=== PATIENT | female | born 1950 | race Caucasian/White ===

== ENCOUNTER 2016-10-22 11:21 | Observation (INO) | payer BC, OTHER ==
[~2016-10-22] VITALS: Ht 154.9 cm; Wt 65.0 kg
[2016-10-22] VITALS (14 sets, daily range): BP systolic 79–193; BP diastolic 46–114; PULSE 63–90; RESP 16–20; TEMP 97.6–98.9; O2SAT 93–99
[2016-10-22] MEDS ORDERED: SODIUM CHLORIDE 0.9% FLUSH 5 ML FLUSH IVF PRN (11:30)
[2016-10-22] MEDS ORDERED: SODIUM CHLOR 0.9% 1000 ML INJ 1,000 ML IV ONE ×2 (11:30→12:00)
[2016-10-22] MEDS ORDERED: DIOV80TA4 PO (11:33)
[2016-10-22] MEDS ORDERED: METO25TA3 PO (11:33)
--- NOTE | 2016-10-22 11:34 | PD ---
HPI Chief Complaint: Chest Pain Time Seen by Provider: 11:29 Travel History International Travel<30 days: No Contact w/Intl Traveler<30days: No Traveled to known affect area: No History of Present Illness HPI Patient is a 66-year-old female with history of hypertension, hyperlipidemia, and the emergency room with complaints of chest pain. Patient reports that she began having substernal chest pain 2 days ago while at rest. Patient reports that the pain feels like a "pressure to my chest," and is associated with shortness of breath. Reports that her chest pain does radiate to her back, reports that chest pain has been continuous for the past 2 days, Reports that she decided to come to the emergency room today as chest pain is just getting worse. Reports no palpitations or diaphoresis with chest pain. No history of chest pain in the past. Denies history of ACS or history of coronary disease or history of cardiac stents in the past. PFSH Past Medical History Cardiovascular Problems: Yes (HTN) Past Surgical History Surgical History: No Previous Surgery Family History Family Myocardial Infarction: Yes Social History Alcohol Use: No Tobacco Use: No Substance Use: No Allergies-Medications (Allergen,Severity, Reaction): Coded Allergies: No Known Allergies (Unverified , 10/22/16) Reported Meds & Prescriptions Reported Meds & Active Scripts Active Reported E 1000 (Vitamin E) 1,000 Unit Cap 1 Cap PO DAILY Vitamin B12 (Cyanocobalamin) 500 Mcg Tab 1,000 Mcg PO DAILY Calcium 500 +D (Calcium Carbonate-Cholecalciferol) 500-400 Mg-Unit Tab 1 Tab PO DAILY Vitamin C (Ascorbic Acid) 500 Mg Cap 500 Mg PO DAILY Cymbalta DR (Duloxetine HCl) 20 Mg Capdr 20 Mg PO DAILY UNKNOWN DOSE [place] (Hydrocodone-Acetaminophen) 10-325 Mg Tab 1 Tab PO Q6H PRN Bisoprolol (Bisoprolol Fumarate) 5 Mg Tab 5 Mg PO DAILY Valsartan-Hydrochlorothiazide 80-12.5 Mg Tab 1 Tab PO DAILY PER PT DOSE 80 MG/ 12 MG Ferrous Sulfate 325 Mg Tab 325 Mg PO DAILY Venlafaxine ER 24 HR (Venlafaxine HCl) 75 Mg Cap 75 Mg PO DAILY Omeprazole 40 Mg Cap 40 Mg PO DAILY Gabapentin 600 Mg Tab 900 Mg PO DAILY Review of Systems General / Constitutional: No: Fever Eyes: No: Visual changes HENT: No: Headaches Cardiovascular: Positive: Chest Pain or Discomfort, Diaphoresis Respiratory: Positive: Shortness of Breath Gastrointestinal: No: Abdominal Pain Genitourinary: No: Dysuria Musculoskeletal: No: Pain Skin: No Rash Neurologic: No: Weakness Psychiatric: No: Depression Endocrine: No: Polydipsia Hematologic/Lymphatic: No: Easy Bruising Physical Exam Narrative GENERAL: Patient with mild distress on exam SKIN: Warm and dry. HEAD: Atraumatic. Normocephalic. EYES: Pupils equal and round. No scleral icterus. No injection or drainage. ENT: No nasal bleeding or discharge. Mucous membranes pink and moist. NECK: Trachea midline. No JVD. CARDIOVASCULAR: Regular rate and rhythm. No murmur appreciated. RESPIRATORY: No accessory muscle use. Clear to auscultation. Breath sounds equal bilaterally. GASTROINTESTINAL: Abdomen soft, non-tender, nondistended. Hepatic and splenic margins not palpable. MUSCULOSKELETAL: No obvious deformities. No clubbing. No cyanosis. No edema. NEUROLOGICAL: Awake and alert. No obvious cranial nerve deficits. Motor grossly within normal limits. Normal speech. PSYCHIATRIC: Appropriate mood and affect; insight and judgment normal. Data Data Last Documented VS Vital Signs Date Time Temp Pulse Resp B/P Pulse Ox O2 Delivery O2 Flow Rate FiO2 10/22/16 13:45 88 20 127/68 97 Nasal Cannula 2 10/22/16 11:23 98.9 Orders Electrocardiogram (10/22/16 11:29) B-Type Natriuretic Peptide (10/22/16 11:29) Ckmb (Isoenzyme) Profile (10/22/16 11:29) Complete Blood Count With Diff (10/22/16 11:29) Comprehensive Metabolic Panel (10/22/16 11:29) D-Dimer (10/22/16 11:29) Prothrombin Time / Inr (Pt) (10/22/16 11:29) Act Partial Throm Time (Ptt) (10/22/16 11:29) Troponin I (10/22/16 11:29) Chest, Single Ap (10/22/16 11:29) Ecg Monitoring (10/22/16 11:29) Iv Access Insert/Monitor (10/22/16 11:29) Oximetry (10/22/16 11:29) Oxygen Administration (10/22/16 11:29) Sodium Chloride 0.9% Flush (Ns Flush) (10/22/16 11:30) Nitroglycerin Sl (Nitrostat Sl) (10/22/16 11:30) Cta Thor Abd Aorta W Iv C W3d (10/22/16 11:29) Sodium Chlor 0.9% 1000 Ml Inj (Ns 1000 M (10/22/16 11:30) Morphine Inj (Morphine Inj) (10/22/16 12:00) Ondansetron Inj (Zofran Inj) (10/22/16 12:00) Sodium Chlor 0.9% 1000 Ml Inj (Ns 1000 M (10/22/16 12:00) CKMB (10/22/16 11:37) CKMB% (10/22/16 11:37) Iohexol 350 Inj (Omnipaque 350 Inj) (10/22/16 12:48) Blood Culture (10/22/16 13:37) Ceftriaxone Inj (Rocephin Inj) (10/22/16 13:45) Azithromycin Inj (Zithromax Inj) (10/22/16 13:45) Labs Laboratory Tests Test 10/22/16 11:37 White Blood Count 8.4 TH/MM3 Red Blood Count 4.69 MIL/MM3 Hemoglobin 14.1 GM/DL Hematocrit 41.2 % Mean Corpuscular Volume 87.9 FL Mean Corpuscular Hemoglobin 30.1 PG Mean Corpuscular Hemoglobin 34.3 % Concent Red Cell Distribution Width 13.7 % Platelet Count 245 TH/MM3 Mean Platelet Volume 8.5 FL Neutrophils (%) (Auto) 69.1 % Lymphocytes (%) (Auto) 20.5 % Monocytes (%) (Auto) 8.5 % Eosinophils (%) (Auto) 1.3 % Basophils (%) (Auto) 0.6 % Neutrophils # (Auto) 5.8 TH/MM3 Lymphocytes # (Auto) 1.7 TH/MM3 Monocytes # (Auto) 0.7 TH/MM3 Eosinophils # (Auto) 0.1 TH/MM3 Basophils # (Auto) 0.1 TH/MM3 CBC Comment DIFF FINAL Differential Comment Prothrombin Time 10.8 SEC Prothromb Time International 1.0 RATIO Ratio Activated Partial 24.2 SEC Thromboplast Time D-Dimer Quantitative (PE/DVT) 3.04 MG/L FEU Sodium Level 139 MEQ/L Potassium Level 4.0 MEQ/L Chloride Level 101 MEQ/L Carbon Dioxide Level 30.5 MEQ/L Anion Gap 8 MEQ/L Blood Urea Nitrogen 13 MG/DL Creatinine 0.67 MG/DL Estimat Glomerular Filtration 89 ML/MIN Rate Random Glucose 122 MG/DL Calcium Level 9.3 MG/DL Total Bilirubin 0.5 MG/DL Aspartate Amino Transf 19 U/L (AST/SGOT) Alanine Aminotransferase 28 U/L (ALT/SGPT) Alkaline Phosphatase 74 U/L Total Creatine Kinase 138 U/L Creatine Kinase MB 1.6 NG/ML Troponin I LESS THAN 0.02 NG/ML B-Type Natriuretic Peptide 20 PG/ML Total Protein 7.5 GM/DL Albumin 4.0 GM/DL MDM Medical Decision Making Medical Screen Exam Complete: Yes Emergency Medical Condition: Yes Interpretation(s) EKG at 1129: Normal sinus rhythm at 83 beats minute, QT/QTC 372/412, no acute ST or T-wave changes Vital Signs Date Time Temp Pulse Resp B/P Pulse Ox O2 Delivery O2 Flow Rate FiO2 10/22/16 11:35 97 Nasal Cannula 2 10/22/16 11:35 97 Nasal Cannula 2 10/22/16 11:23 98.9 66 18 193/114 96 Laboratory Tests Test 10/22/16 11:37 White Blood Count 8.4 TH/MM3 (4.0-11.0) Red Blood Count 4.69 MIL/MM3 (4.00-5.30) Hemoglobin 14.1 GM/DL (11.6-15.3) Hematocrit 41.2 % (35.0-46.0) Mean Corpuscular Volume 87.9 FL (80.0-100.0) Mean Corpuscular Hemoglobin 30.1 PG (27.0-34.0) Mean Corpuscular Hemoglobin 34.3 % Concent (32.0-36.0) Red Cell Distribution Width 13.7 % (11.6-17.2) Platelet Count 245 TH/MM3 (150-450) Mean Platelet Volume 8.5 FL (7.0-11.0) Neutrophils (%) (Auto) 69.1 % (16.0-70.0) Lymphocytes (%) (Auto) 20.5 % (9.0-44.0) Monocytes (%) (Auto) 8.5 % (0.0-8.0) Eosinophils (%) (Auto) 1.3 % (0.0-4.0) Basophils (%) (Auto) 0.6 % (0.0-2.0) Neutrophils # (Auto) 5.8 TH/MM3 (1.8-7.7) Lymphocytes # (Auto) 1.7 TH/MM3 (1.0-4.8) Monocytes # (Auto) 0.7 TH/MM3 (0-0.9) Eosinophils # (Auto) 0.1 TH/MM3 (0-0.4) Basophils # (Auto) 0.1 TH/MM3 (0-0.2) CBC Comment DIFF FINAL Differential Comment Prothrombin Time 10.8 SEC (9.8-11.6) Prothromb Time International 1.0 RATIO Ratio Activated Partial 24.2 SEC Thromboplast Time (24.3-30.1) D-Dimer Quantitative (PE/DVT) 3.04 MG/L FEU (0.00-0.50) Sodium Level 139 MEQ/L (136-145) Potassium Level 4.0 MEQ/L (3.5-5.1) Chloride Level 101 MEQ/L (98-107) Carbon Dioxide Level 30.5 MEQ/L (21.0-32.0) Anion Gap 8 MEQ/L (5-15) Blood Urea Nitrogen 13 MG/DL (7-18) Creatinine 0.67 MG/DL (0.50-1.00) Estimat Glomerular Filtration 89 ML/MIN (>89) Rate Random Glucose 122 MG/DL (74-106) Calcium Level 9.3 MG/DL (8.5-10.1) Total Bilirubin 0.5 MG/DL (0.2-1.0) Aspartate Amino Transf 19 U/L (15-37) (AST/SGOT) Alanine Aminotransferase 28 U/L (10-53) (ALT/SGPT) Alkaline Phosphatase 74 U/L (45-117) Total Creatine Kinase 138 U/L (26-192) Creatine Kinase MB 1.6 NG/ML (0.5-3.6) Troponin I LESS THAN 0.02 NG/ML (0.02-0.05) B-Type Natriuretic Peptide 20 PG/ML (0-100) Total Protein 7.5 GM/DL (6.4-8.2) Albumin 4.0 GM/DL (3.4-5.0) Last Impressions Chest X-Ray 10/22/161128 Signed Impressions: Service Date/Time: Saturday, October 22, 2016 11:43 - CONCLUSION: No acute intrathoracic disease. Shade Gore MD Aorta CTA 10/22/161128 Signed Impressions: Service Date/Time: Saturday, October 22, 2016 12:38 - CONCLUSION: 1. Aorta is normal in caliber without dissection. 2. Left lower lobe infiltrate. 3. 5 mm right lower lobe pulmonary nodule. Current guidelines suggest a repeat CT of the thorax in 6-12 months. Jim Tomas Jr., MD Differential Diagnosis ACS, unstable angina, electrolyte abnormalities, PE, DVT, aortic dissection Narrative Course 66-year-old female who presents to emergency room with complaints of chest pain. Patient reports that her chest pain began 2 days ago while at rest. She reports that chest pain is substernal and radiates her back. Reports that pain feels like a pressure to her chest and associated with shortness of breath Patient placed on monitor technician EKG obtained, EKG normal sinus rhythm with no acute ST or T-wave changes Plan to give patient several nitroglycerin and evaluate for further chest pain symptoms CBC, BMP, cardiac enzymes ordered for further evaluation of symptoms. X-ray ordered to evaluate for widened mediastinum Patient with chest pain rating to her back, CTA ordered for evaluation of possible aortic dissection Patient reevaluated, she reports that she is feeling a little better. Patient reports that she has had a dry cough for the past 2 days. Patient denies fevers or chills. Discussed with patient in detail CT findings. Understands that she does have a pneumonia seen on her CT. understands that she has a long nodule that needs to be follow-up with. Discussed need for treatment for pneumonia, will continue to monitor patient for her chest pain Last Impressions Chest X-Ray 10/22/161128 Signed Impressions: Service Date/Time: Saturday, October 22, 2016 11:43 - CONCLUSION: No acute intrathoracic disease. Shade Gore MD Aorta CTA 10/22/161128 Signed Impressions: Service Date/Time: Saturday, October 22, 2016 12:38 - CONCLUSION: 1. Aorta is normal in caliber without dissection. 2. Left lower lobe infiltrate. 3. 5 mm right lower lobe pulmonary nodule. Current guidelines suggest a repeat CT of the thorax in 6-12 months. Jim Tomas Jr., MD Physician Communication Physician Communication Discussed case with Dr Marcelo who accepts pt to service Diagnosis Primary Impression: Chest pain Qualified Code: R07.9 - Chest pain, unspecified type Additional Impressions: Pneumonia Qualified Code: J18.1 - Pneumonia of left lower lobe due to infectious organism Lung nodule Admitting Information Admitting Physician Requests: Observation Mari Feldman DO Oct 22, 2016 11:34
[2016-10-22] MEDS: NITROGLYCERIN 0.4 MG SL 25 TABS/BTL SL SCH ×3 (11:35→11:48)
[2016-10-22 11:48] LABS: AUTOMATED NEUTROPHIL # 5.8 TH/MM3 (1.8-7.7); BASOPHIL # 0.1 TH/MM3 (0-0.2); BASOPHIL % 0.6 % (0.0-2.0); EOSINOPHIL # 0.1 TH/MM3 (0-0.4); EOSINOPHIL % 1.3 % (0.0-4.0); HEMATOCRIT 41.2 % (35.0-46.0); HEMO FLAGS DIFF FINAL; LYMPH % 20.5 % (9.0-44.0); LYMPHOCYTE # 1.7 TH/MM3 (1.0-4.8); MEAN CELL VOLUME 87.9 FL (80.0-100.0); MEAN CORPUSCULAR HEMOGLOBIN 30.1 PG (27.0-34.0); MEAN CORPUSCULAR HGB CONC 34.3 % (32.0-36.0); MONO % 8.5 % (0.0-8.0); NEUT % 69.1 % (16.0-70.0); PLATELET COUNT 245 TH/MM3 (150-450); RED BLOOD COUNT 4.69 MIL/MM3 (4.00-5.30); RED CELL DISTRIBUTION WIDTH 13.7 % (11.6-17.2); WHITE BLOOD COUNT 8.4 TH/MM3 (4.0-11.0)
--- NOTE | 2016-10-22 11:51 | RADRPT ---
EXAM DATE/TIME: 10/22/2016 11:43 [facility] COMPARISON: No previous studies available for comparison. INDICATIONS : Chest pain. MEDICAL HISTORY : None. SURGICAL HISTORY : None. ENCOUNTER: Initial ACUITY: 1 day PAIN SCORE: 9/10 LOCATION: Bilateral chest FINDINGS: A single view of the chest demonstrates the lungs to be symmetrically aerated without evidence of mas s, infiltrate or effusion. The cardiomediastinal contours are unremarkable. Osseous structures are intact. CONCLUSION: No acute intrathoracic disease. Shade Gore MD on October 22, 2016 at 11:49 Board Certified Radiologist. This report was verified electronically.
[2016-10-22] MEDS ORDERED: ONDANSETRON HCL 4 MG/2 ML VIAL IV PUSH ONE (12:00)
[2016-10-22] MEDS ORDERED: MORPHINE SULFATE 4 MG/ML INJ IV PUSH ONE (12:00)
[2016-10-22 12:01] LABS: APTT (PATIENT) 24.2 SEC (24.3-30.1); PROTHROMBIN TIME - PATIENT 10.8 SEC (9.8-11.6)
[2016-10-22 12:09] LABS: ALT (GPT) 28 U/L (10-53); ANION GAP 8 MEQ/L (5-15); AST (GOT) 19 U/L (15-37); BICARBONATE 30.5 MEQ/L (21.0-32.0); BLOOD UREA NITROGEN 13 MG/DL (7-18); CHLORIDE 101 MEQ/L (98-107); GLOMERULAR FILTRATION RATE 89 ML/MIN (>89); SODIUM (NA) 139 MEQ/L (136-145)
[2016-10-22 12:12] LABS: ALKALINE PHOSPHATASE 74 U/L (45-117); CREATINE KINASE 138 U/L (26-192); TOTAL BILIRUBIN ADULT 0.5 MG/DL (0.2-1.0)
[2016-10-22 12:24] LABS: CKMB 1.6 NG/ML (0.5-3.6)
[2016-10-22] MEDS ORDERED: IOHEXOL 350 MG/ML 10 ML VIAL (for RAD DIAG) IV ONE (12:48)
--- NOTE | 2016-10-22 13:12 | RADRPT ---
EXAM DATE/TIME: 10/22/2016 12:38 [facility] COMPARISON: No previous studies available for comparison. INDICATIONS : Chest pain for 2 days, aortic dissection. IV CONTRAST: 100 cc Omnipaque 350 (iohexol) IV RADIATION DOSE: 19.45 CTDIvol (mGy) MEDICAL HISTORY : Hypertension. SURGICAL HISTORY : None. ENCOUNTER: Initial ACUITY: 1 day PAIN SCALE: 5/10 LOCATION: Bilateral arms TECHNIQUE: Volumetric scanning was performed using a multi-row detector CT scanner. The data was post processed with a variety of visualization algorithms including full volume maximum intensity projection, multi -planar sliding thin slab reformation, curved planar reformation, and surface rendering techniques. Using automated exposure control and adjustment of the mA and/or kV according to patient size, radiat ion dose was kept as low as reasonably achievable to obtain optimal diagnostic quality images. FINDINGS: Thoracic/abdominal aorta: The abdominal and thoracic aorta are normal in caliber and course. No aneurysm or dissection. Minimal scattered atherosclerotic plaque. The arch vessels, celiac, SMA, ZONIA, and renal arteries are patent. There is variant anatomy at the celiac origin with the left gastric arising directly off the aorta. The common hepatic artery arises off the SMA. Heart and mediastinum: The heart is normal in size. Pulmonary arteries are normal in caliber. A few tiny scattered mediastin al lymph nodes without adenopathy. A moderate size hiatal hernia noted. Lung parenchyma: Linear parenchymal opacity is seen involving the left lung base. The right lung is clear. A 5 mm nodu le is noted within the right lung base. No effusions. Diffuse low attenuation change of the liver. Other structures: CONCLUSION: 1. Aorta is normal in caliber without dissection. 2. Left lower lobe infiltrate. 3. 5 mm right lower lobe pulmonary nodule. Current guidelines suggest a repeat CT of the thorax in 6- 12 months. Jim Tomas Jr., MD on October 22, 2016 at 13:06 Board Certified Radiologist. This report was verified electronically.
[2016-10-22] MEDS ORDERED: FERR325T PO (13:42)
[2016-10-22] MEDS ORDERED: OMEP40CA2 PO (13:42)
[2016-10-22] MEDS ORDERED: VALS80TA2 PO (13:42)
[2016-10-22] MEDS ORDERED: BISO5TAB5 PO (13:42)
[2016-10-22] MEDS ORDERED: VENL75CA44 PO (13:42)
[2016-10-22] MEDS ORDERED: HYDR-3366 PO (13:42)
[2016-10-22] MEDS ORDERED: GABA600T PO (13:42)
[2016-10-22] MEDS ORDERED: E 101000 PO (13:42)
[2016-10-22] MEDS ORDERED: ASCO500C PO (13:42)
[2016-10-22] MEDS ORDERED: DULO20 PO (13:42)
[2016-10-22] MEDS ORDERED: CALC1TAB12 PO (13:42)
[2016-10-22] MEDS ORDERED: VITA500T49 PO (13:42)
[2016-10-22] MEDS ORDERED: cefTRIAXone INJ 1,000 MG in SODIUM CHLORIDE 0.9% INJ 100 ML IV ONE (13:45)
[2016-10-22] MEDS ORDERED: AZITHROMYCIN INJ 500 MG in SODIUM CHLOR 0.9% 250 ML INJ 250 ML IV ONE (13:45)
[2016-10-22] MEDS ORDERED: SODIUM CHLORIDE 0.9% FLUSH 5 ML FLUSH FLUSH PRN (14:30)
[2016-10-22] MEDS ORDERED: NALOXONE HCL 0.4 MG/ML AMP IV PRN (14:30)
[2016-10-22] MEDS ORDERED: cefTRIAXone INJ 1,000 MG in SODIUM CHLORIDE 0.9% INJ 100 ML IV SCH (15:00)
--- NOTE | 2016-10-22 15:06 | HHI.HP ---
[facility] Service [facility] Primary Care Physician Non-Staff Admission Diagnosis chest pain, pneumonia Diagnoses: Chief Complaint: Chest pain Travel History International Travel<30 Days: No Contact w/Intl Traveler <30 Da: No Traveled to Known Affected Are: No History of Present Illness 66-year-old female with past medical history of HTN, GERD, neuropathy, DAVIS, depression who presented with chest pain. The patient states for the past few days she's been having chest pain that radiates to her back. She locates the pain midsternally. She describes the pain as gnawing, constant, sharp. The pain is worse when she coughs and takes a deep breath. She's been having occasional cough for the past few days, dry. She does note shortness of breath for the past few days. She states the pain in her chest is worse whenever she eats, so she has not been eating much. She denies any fevers or chills. She has had a sore throat. She states after receiving antibiotics today she became a little nauseated, denies any vomiting. She denies any prior history of heart disease. No tobacco use history. Review of Systems Other 10 point review of systems performed and was negative except as stated in the history of present illness Past Family Social History Past Medical History Hypertension GERD Depression Sleep apnea on CPAP Peroneal neuropathy Past Surgical History None Reported Medications E 1000 (Vitamin E) 1,000 Unit Cap 1 Cap PO DAILY Vitamin B12 (Cyanocobalamin) 500 Mcg Tab 1,000 Mcg PO DAILY Calcium 500 +D (Calcium Carbonate-Cholecalciferol) 500-400 Mg-Unit Tab 1 Tab PO DAILY Vitamin C (Ascorbic Acid) 500 Mg Cap 500 Mg PO DAILY Cymbalta DR (Duloxetine HCl) 20 Mg Capdr 20 Mg PO DAILY UNKNOWN DOSE [place] (Hydrocodone-Acetaminophen) 10-325 Mg Tab 1 Tab PO Q6H PRN Bisoprolol (Bisoprolol Fumarate) 5 Mg Tab 5 Mg PO DAILY Valsartan-Hydrochlorothiazide 80-12.5 Mg Tab 1 Tab PO DAILY PER PT DOSE 80 MG/ 12 MG Ferrous Sulfate 325 Mg Tab 325 Mg PO DAILY Venlafaxine ER 24 HR (Venlafaxine HCl) 75 Mg Cap 75 Mg PO DAILY Omeprazole 40 Mg Cap 40 Mg PO DAILY Gabapentin 600 Mg Tab 900 Mg PO DAILY Allergies: Coded Allergies: No Known Allergies (Unverified , 10/22/16) Active Ordered Medications Current Medications Medications (Trade) Dose Ordered Sig/Rommel Route Start Time Stop Time Status Last Admin (NS Flush) 2 ml UNSCH PRN FLUSH 10/22/16 14:30 (NS Flush) 2 ml BID FLUSH 10/22/16 21:00 (Narcan Inj) 0.4 mg UNSCH PRN IV 10/22/16 14:30 (Vitamin C) 500 mg DAILY PO 10/23/16 09:00 (Vitamin B12) 1,000 mcg DAILY PO 10/23/16 09:00 (Cymbalta Dr) 20 mg DAILY PO 10/23/16 09:00 (Ferrous Sulfate) 325 mg DAILY PO 10/23/16 09:00 (Neurontin) 900 mg DAILY PO 10/23/16 09:00 ([place] 10-325 Mg) 1 tab Q6H PRN PO 10/22/16 14:45 (Protonix) 40 mg DAILY PO 10/23/16 09:00 (Effexor Xr) 75 mg DAILY PO 10/23/16 09:00 (Zebeta) 5 mg DAILY PO 10/23/16 09:00 Non-Formulary Medication 1 tab DAILY PO 10/23/16 09:00 UNV Non-Formulary Medication 1 tab DAILY PO 10/23/16 09:00 UNV Non-Formulary Medication 1 cap 1 cap DAILY PO 10/23/16 09:00 UNV (Rocephin Inj/NS Inj) 100 ml @ 200 mls/hr Q24H IV 10/22/16 15:00 (Zithromax) 250 mg DAILY PO 10/23/16 09:00 Family History Other had an OR at age 52, and at age 61 of cancer Mother had hypertension, at age 77 of cardiac arrest Social History Denies any tobacco or drug use Rarely drinks wine Physical Exam Vital Signs Vital Signs Date Time Temp Pulse Resp B/P Pulse Ox O2 Delivery O2 Flow Rate FiO2 10/22/16 13:45 88 20 127/68 97 Nasal Cannula 2 10/22/16 12:45 90 19 125/66 96 Nasal Cannula 2 10/22/16 12:04 66 19 94/57 96 Nasal Cannula 2 10/22/16 11:59 68 20 79/46 96 Nasal Cannula 2 10/22/16 11:40 63 20 143/67 97 Nasal Cannula 2 10/22/16 11:36 20 96 Nasal Cannula 2 10/22/16 11:35 97 Nasal Cannula 2 10/22/16 11:35 97 Nasal Cannula 2 10/22/16 11:23 98.9 66 18 193/114 96 Physical Exam GENERAL: Well-developed well-nourished. In no acute distress. SKIN: Warm and dry. No lesions noted. HEENT: Normocephalic. Pupils equal and round and reactive to light. Mucous membranes pink and moist. No cervical lymphadenopathy palpable. CARDIOVASCULAR: Regular rate and rhythm. No murmur appreciated. RESPIRATORY: No accessory muscle use. Clear to auscultation. Breath sounds equal bilaterally. GASTROINTESTINAL: Abdomen soft, non-tender, nondistended. Bowel sounds x4. MUSCULOSKELETAL: No obvious deformities. Some spasm of the cervical paraspinal muscles. No clubbing or cyanosis. No edema. Ankle and calf brace on the left for neuropathy. NEUROLOGICAL: Awake and alert. No focal neurological deficits. Moves upper and lower extremities spontaneously. Normal speech. Strength 5/5. PSYCHIATRIC: Appropriate mood and affect; insight and judgment normal. Laboratory Laboratory Tests Test 10/22/16 11:37 White Blood Count 8.4 Red Blood Count 4.69 Hemoglobin 14.1 Hematocrit 41.2 Mean Corpuscular Volume 87.9 Mean Corpuscular Hemoglobin 30.1 Mean Corpuscular Hemoglobin 34.3 Concent Red Cell Distribution Width 13.7 Platelet Count 245 Mean Platelet Volume 8.5 Neutrophils (%) (Auto) 69.1 Lymphocytes (%) (Auto) 20.5 Monocytes (%) (Auto) 8.5 Eosinophils (%) (Auto) 1.3 Basophils (%) (Auto) 0.6 Neutrophils # (Auto) 5.8 Lymphocytes # (Auto) 1.7 Monocytes # (Auto) 0.7 Eosinophils # (Auto) 0.1 Basophils # (Auto) 0.1 CBC Comment DIFF FINAL Differential Comment Prothrombin Time 10.8 Prothromb Time International 1.0 Ratio Activated Partial 24.2 Thromboplast Time D-Dimer Quantitative (PE/DVT) 3.04 Sodium Level 139 Potassium Level 4.0 Chloride Level 101 Carbon Dioxide Level 30.5 Anion Gap 8 Blood Urea Nitrogen 13 Creatinine 0.67 Estimat Glomerular Filtration 89 Rate Random Glucose 122 Calcium Level 9.3 Total Bilirubin 0.5 Aspartate Amino Transf 19 (AST/SGOT) Alanine Aminotransferase 28 (ALT/SGPT) Alkaline Phosphatase 74 Total Creatine Kinase 138 Creatine Kinase MB 1.6 Troponin I LESS THAN 0.02 B-Type Natriuretic Peptide 20 Total Protein 7.5 Albumin 4.0 Date/Time Procedure Status Source Growth 10/22/16 13:50 Aerobic Blood Culture Received Blood Peripheral Pending 10/22/16 13:50 Anaerobic Blood Culture Received Blood Peripheral Pending Result Diagram: 10/22/16 1137 10/22/16 1137 Imaging Last Impressions Chest X-Ray 10/22/16 1129 Signed Impressions: Service Date/Time: Saturday, October 22, 2016 11:43 - CONCLUSION: No acute intrathoracic disease. Shade Gore MD Aorta CTA 10/22/161128 Signed Impressions: Service Date/Time: Saturday, October 22, 2016 12:38 - CONCLUSION: 1. Aorta is normal in caliber without dissection. 2. Left lower lobe infiltrate. 3. 5 mm right lower lobe pulmonary nodule. Current guidelines suggest a repeat CT of the thorax in 6-12 months. Jim Tomas Jr., MD Assessment and Plan Problem List: (1) Chest pain ICD Code: R07.9 Status: Acute (2) Pneumonia ICD Code: J18.9 Status: Acute (3) Lung nodule ICD Code: R91.1 Status: Acute Assessment and Plan 66-year-old female with past medical history of HTN, GERD, neuropathy, DAVIS, depression who presented with chest pain Pneumonia: Left lower lobe infiltrate seen on thoracic aorta CTA. Afebrile with no leukocytosis. Received IV azithromycin and ceftriaxone, continue for now, likely transition to oral antibiotics tomorrow. Scheduled nebs. Acapella and incentive spirometry. Oxygen as needed. IVF for decreased oral intake. Chest pain, atypical: Probably secondary to pneumonia as above, doubt ACS, but will rule out per protocol. Initial troponin within normal limits, trending. EKG showed NSR, no acute ST changes. Aorta CTA negative for dissection. Lung nodule: Incidentally seen on chest CT. Follow-up CT chest in 612 months. Patient informed of findings. Sleep apnea: Resume home CPAP if available, otherwise O2 at night. Other chronic medical conditions include HTN, depression, neuropathy, RAY, GERD : Stable at this time and will continue home medications as indicated. Written by Wisam Rondon, acting as scribe for Dr. Marcelo on 10/22/16 at 15:06. Code Status Full code Discussed Condition With Patient with at bedside Attending Statement The documentation accurately reflects the work performed [id number] by me, Dr. Marcelo on 10/22/16 at 15:06. Problem Qualifiers (1) Chest pain: Qualified Code: R07.9 - Chest pain, unspecified type (2) Pneumonia: Qualified Code: J18.1 - Pneumonia of left lower lobe due to infectious organism Wisam Rondon Oct 22, 2016 15:06 Cesar Marcelo MD Oct 23, 2016 22:34
[2016-10-22] MEDS: RESP: ALBUTEROL 2.5 MG/IPRATROPIUM 0.5 MG NEB (SCH) NEB ×2 (15:34→21:59)
[2016-10-22] MEDS: DEXT 5%-NACL 0.45% 1000 ML INJ 1,000 ML IV SCH (15:52)
[2016-10-22] MEDS: ONDANSETRON HCL 4 MG/2 ML VIAL IV PUSH PRN ×2 (15:54→21:38)
[2016-10-22] MEDS: ACETAMINOPHEN/HYDROcodone 325 MG/10 MG TAB PO PRN (18:32)
[2016-10-22 20:55] LABS: CREATINE KINASE 122 U/L (26-192)
[2016-10-22] MEDS: SODIUM CHLORIDE 0.9% FLUSH 5 ML FLUSH FLUSH SCH (21:38)
[2016-10-23] VITALS (11 sets, daily range): BP systolic 104–121; BP diastolic 65–68; PULSE 66–92; RESP 16–20; TEMP 97.4–98.5; O2SAT 95–99
[2016-10-23] MEDS ORDERED: ALPRAZolam 0.25 MG TAB PO PRN
[2016-10-23] MEDS: ACETAMINOPHEN/HYDROcodone 325 MG/10 MG TAB PO PRN ×3 (00:07→22:03)
[2016-10-23 03:07] LABS: AUTOMATED NEUTROPHIL # 4.6 TH/MM3 (1.8-7.7); BASOPHIL % 0.3 % (0.0-2.0); EOSINOPHIL # 0.1 TH/MM3 (0-0.4); EOSINOPHIL % 0.9 % (0.0-4.0); HEMATOCRIT 35.1 % (35.0-46.0); HEMO FLAGS DIFF FINAL; LYMPH % 27.6 % (9.0-44.0); MEAN CELL VOLUME 88.3 FL (80.0-100.0); MEAN CORPUSCULAR HEMOGLOBIN 30.4 PG (27.0-34.0); MEAN CORPUSCULAR HGB CONC 34.4 % (32.0-36.0); MONO % 8.4 % (0.0-8.0); NEUT % 62.8 % (16.0-70.0); PLATELET COUNT 208 TH/MM3 (150-450); RED BLOOD COUNT 3.98 MIL/MM3 (4.00-5.30); RED CELL DISTRIBUTION WIDTH 13.5 % (11.6-17.2); WHITE BLOOD COUNT 7.4 TH/MM3 (4.0-11.0)
[2016-10-23] MEDS: RESP: ALBUTEROL 2.5 MG/IPRATROPIUM 0.5 MG NEB (SCH) NEB ×4 (03:20→21:41)
[2016-10-23 03:42] LABS: ANION GAP 6 MEQ/L (5-15); BICARBONATE 29.7 MEQ/L (21.0-32.0); BLOOD UREA NITROGEN 13 MG/DL (7-18); CHLORIDE 105 MEQ/L (98-107); CREATINE KINASE 115 U/L (26-192); GLOMERULAR FILTRATION RATE 92 ML/MIN (>89); POTASSIUM 3.4 MEQ/L (3.5-5.1); SODIUM (NA) 141 MEQ/L (136-145)
[2016-10-23] MEDS ORDERED: POTASSIUM CHLORIDE 20 MEQ CONTROLLED RELEASE TAB PO ONE (07:30)
[2016-10-23] MEDS: VALSARTAN 80 MG TAB PO SCH (08:04)
[2016-10-23] MEDS: HYDROCHLOROTHIAZIDE 12.5 MG CAP PO SCH (08:04)
[2016-10-23] MEDS: ASCORBIC ACID 500 MG TAB PO SCH (08:05)
[2016-10-23] MEDS: CALCIUM/VITAMIN D 250 MG/125 U TAB PO SCH (08:05)
[2016-10-23] MEDS: GABAPENTIN 300 MG CAP PO SCH (08:05)
[2016-10-23] MEDS: CYANOCOBALAMIN 1,000 MCG TAB PO SCH (08:05)
[2016-10-23] MEDS: VENLAFAXINE HCL XR 75 MG CAP PO SCH (08:05)
[2016-10-23] MEDS: FERROUS SULFATE 325 MG (65 MG ELEMENTAL IRON) TAB PO SCH (08:05)
[2016-10-23] MEDS: DULoxetine HCl DR 20 MG CAP PO SCH (08:05)
[2016-10-23] MEDS: PANTOPRAZOLE SOD 40 MG DELAYED RELEASE TAB PO SCH (08:05)
[2016-10-23] MEDS: SODIUM CHLORIDE 0.9% FLUSH 5 ML FLUSH FLUSH SCH ×2 (08:06→20:38)
[2016-10-23] MEDS: AZITHROMYCIN 250 MG TAB PO SCH (08:06)
[2016-10-23] MEDS ORDERED: NON-FORMULARY DRUG (Valsartan-Hydrochlorothiazide 1 TAB) PO SCH (09:00)
[2016-10-23] MEDS ORDERED: MORPHINE SULFATE 4 MG/ML INJ IV PUSH ONE (09:00)
--- NOTE | 2016-10-23 09:01 | HHI.PR ---
Subjective Remarks Follow up for pneumonia, chest pain. The patient reports still not feeling well today. She has continued substernal up to midsternal chest pains she describes as burning consistent with heartburn. The patient states she has been dealing with heartburn over the past week, and stopped taking her medications for 3 days because of this, which she believes has now exacerbated her chronic pain. She also has not been able to eat normally because of this. Otherwise the patient denies any fevers, chills, cough, or sputum production. She also complains of a headache, she states this was temporarily relieved by norco and xanax. Objective Vitals Vital Signs Date Time Temp Pulse Resp B/P Pulse Ox O2 Delivery O2 Flow Rate FiO2 10/23/16 07:56 97.6 80 18 116/65 97 10/23/16 03:36 97.4 74 20 113/65 98 10/23/16 00:17 90 10/22/16 23:27 98.0 84 20 131/78 93 10/22/16 21:46 98 Nasal Cannula 2.00 10/22/16 20:00 81 10/22/16 19:43 12 10/22/16 19:20 97.6 84 20 106/57 98 10/22/16 16:57 98.3 85 16 114/66 97 10/22/16 15:56 87 19 119/69 99 Nasal Cannula 2 10/22/16 15:33 99 Nasal Cannula 3.00 10/22/16 13:45 88 20 127/68 97 Nasal Cannula 2 10/22/16 12:45 90 19 125/66 96 Nasal Cannula 2 10/22/16 12:04 66 19 94/57 96 Nasal Cannula 2 10/22/16 11:59 68 20 79/46 96 Nasal Cannula 2 10/22/16 11:40 63 20 143/67 97 Nasal Cannula 2 10/22/16 11:36 20 96 Nasal Cannula 2 10/22/16 11:35 97 Nasal Cannula 2 10/22/16 11:35 97 Nasal Cannula 2 10/22/16 11:23 98.9 66 18 193/114 96 I/O 10/22/16 10/22/16 10/22/16 10/23/16 10/23/16 10/23/16 07:00 15:00 23:00 07:00 15:00 23:00 Intake Total 744 ml Balance 744 ml Intake Oral 240 ml IV Total 504 ml # Voids 3 Result Diagram: 10/23/16 0252 10/23/16 0252 Imaging Last Impressions Chest X-Ray 10/22/169 Signed Impressions: Service Date/Time: Saturday, October 22, 2016 11:43 - CONCLUSION: No acute intrathoracic disease. Shade Gore MD Aorta CTA 10/22/16 1129 Signed Impressions: Service Date/Time: Saturday, October 22, 2016 12:38 - CONCLUSION: 1. Aorta is normal in caliber without dissection. 2. Left lower lobe infiltrate. 3. 5 mm right lower lobe pulmonary nodule. Current guidelines suggest a repeat CT of the thorax in 6-12 months. Jim Tomas Jr., MD Objective Remarks GENERAL: Well-nourished, well-developed female patient in NAD. SKIN: Warm and dry. No rash. HEAD: Normocephalic. Atraumatic. EYES: Pupils equal and round. No scleral icterus. No injection or drainage. ENT: No nasal bleeding or discharge. Mucous membranes pink and moist. NECK: Supple. Trachea midline. CARDIOVASCULAR: Regular rate and rhythm. S1, S2 noted. No murmur appreciated. RESPIRATORY: No accessory muscle use. Faint crackles at left base, otherwise clear to auscultation. Breath sounds equal bilaterally. GASTROINTESTINAL: Abdomen soft, nondistended, mild epigastric TTP. Normoactive bowel sounds x4. MUSCULOSKELETAL: No obvious deformities. Extremities without clubbing, cyanosis , or edema. NEUROLOGICAL: Awake and alert. No obvious cranial nerve deficits. Motor grossly within normal limits. Normal speech. PSYCHIATRIC: Appropriate mood and affect; insight and judgment normal. Medications and IVs Current Medications Medications (Trade) Dose Ordered Sig/Rommel Route Start Time Stop Time Status Last Admin (NS Flush) 2 ml UNSCH PRN FLUSH 10/22/16 14:30 10/22/16 15:54 (NS Flush) 2 ml BID FLUSH 10/22/16 21:00 10/23/16 08:06 (Narcan Inj) 0.4 mg UNSCH PRN IV 10/22/16 14:30 (Vitamin C) 500 mg DAILY PO 10/23/16 09:00 10/23/16 08:05 (Vitamin B12) 1,000 mcg DAILY PO 10/23/16 09:00 10/23/16 08:05 (Cymbalta Dr) 20 mg DAILY PO 10/23/16 09:00 10/23/16 08:05 (Ferrous Sulfate) 325 mg DAILY PO 10/23/16 09:00 10/23/16 08:05 (Neurontin) 900 mg DAILY PO 10/23/16 09:00 10/23/16 08:05 ([place] 10-325 Mg) 1 tab Q6H PRN PO 10/22/16 14:45 10/23/16 05:38 (Protonix) 40 mg DAILY PO 10/23/16 09:00 10/23/16 08:05 (Effexor Xr) 75 mg DAILY PO 10/23/16 09:00 10/23/16 08:05 (Zebeta) 5 mg DAILY PO 10/23/16 09:00 (Oscal-D 250-125) 500 mg DAILY PO 10/23/16 09:00 10/23/16 08:05 (Vitamin E) 800 units DAILY PO 10/23/16 09:00 Azithromycin 250 mg 250 mg DAILY PO 10/23/16 09:00 10/23/16 08:06 (D5W-1/2 NS 1000 ml Inj) 1,000 ml @ 42 mls/hr [id number] IV 10/22/16 15:15 10/22/16 15:52 (Diovan) 80 mg DAILY PO 10/23/16 09:00 10/23/16 08:04 (Microzide) 12.5 mg DAILY PO 10/23/16 09:00 10/23/16 08:04 Ondansetron HCl 4 mg 4 mg Q6HR PRN IV PUSH 10/22/16 15:15 10/22/16 21:38 (Rocephin Inj/NS Inj) 100 ml @ 200 mls/hr Q24H IV 10/23/16 14:00 (Flu (Quadrivalent) Vaccine Inj) 0.5 ml ONCE ONCE IM 10/23/16 10:00 10/23/16 10:01 10/23/16 08:15 (Xanax) 0.25 mg Q8H PRN PO 10/23/16 00:00 10/23/16 00:07 (Carafate Liq) 1 gm ACHS PO 10/23/16 11:00 Urinary Catheter: No Vascular Central Line Catheter: No A/P Problem List: (1) Chest pain ICD Code: R07.9 Status: Acute (2) Pneumonia ICD Code: J18.9 Status: Acute (3) Lung nodule ICD Code: R91.1 Status: Acute Assessment and Plan 66-year-old female with past medical history of HTN, GERD, neuropathy, DAVIS, depression who presented with chest pain Community Acquired Pneumonia: Left lower lobe infiltrate seen on thoracic aorta CTA. Afebrile, no leukocytosis. Continue IV Rocephin and po azithro. Scheduled nebs. Acapella and incentive spirometry. Oxygen as needed. IVF for decreased oral intake. Chest pain, atypical: Suspect GI related vs secondary to pneumonia. Doubt ACS, ACS ruled out with negative serial cardiac enzymes and EKG with no acute ST changes. Aorta CTA negative for dissection. Severe Heartburn/Reflux/Epigastric Pain: suspect gastritis vs esophagitis. Continue Protonix. Started on carafate tidac and Magic Mouth wash qid. Consult gastroenterology for evaluation. Lung nodule: Incidentally seen on chest CT. Follow-up CT chest in 612 months. Patient informed of findings. Sleep apnea: Resume home CPAP if available, otherwise O2 at night. Other chronic medical conditions include HTN, depression, neuropathy, RAY, GERD : Stable at this time and will continue home medications as indicated. DVT Prophylaxis: SCDs Attending Statement The exam, history, and the medical decision-making described in the above note were completed with the assistance of the mid-level provider. I reviewed and agree with the findings presented. I attest that I had a [id number] encounter with the patient on the same day, and personally performed and documented my assessment and findings in the medical record. patient reports dysphasia/odynophagia. Appears uncomfortable. We'll try Magic mouthwash. Gastroenterology consulted. Appreciate assistance. Plan for EGD. Problem Qualifiers (1) Chest pain: Qualified Code: R07.9 - Chest pain, unspecified type (2) Pneumonia: Qualified Code: J18.1 - Pneumonia of left lower lobe due to infectious organism Sissy Delarosa PA-C Oct 23, 2016 09:01 Cesar Marcelo MD Oct 23, 2016 22:37
[2016-10-23] MEDS ORDERED: INFLUENZA VIRUS VACCINE (QUADRIVALENT) 0.5 ML SYR IM ONE (10:00)
[2016-10-23] MEDS: VITAMIN E 400 UNIT CAP PO SCH (10:25)
[2016-10-23] MEDS: SUCRALFATE 1 GM/10 ML CUP PO SCH ×3 (10:25→20:39)
[2016-10-23] MEDS: BISOPROLOL FUMARATE 5 MG TAB PO SCH (10:25)
--- NOTE | 2016-10-23 10:59 | PD.CONS ---
HPI History of Present Illness This is a 66 year old female who presented to the ED with C/O chest pain,the pain started a few days ago and was worse after eating. She was feeling a heaviness in her mid chest area and pain radiated into back. The pain is constant, sharp, and nothing made the pain go away and pain is worse after eating. She did have mild nausea but no vomiting. Also has epigastric tenderness. She is being treated for pneumonia and did C/O sore throat. Does have evidence of oral thrush. She has never had an EGD and a colonoscopy was done this year which did show polyps. She has PMH of GERD on PPI's, neuropathy on chronic pain medications, HTN, DAVIS on CPAP. She was found to be anemic several years ago with no known cause and had been oral iron, has stable H&H of 12.1/35.1. Gerardo constipation or diarrhea, no hematemesis. (Purvi Jurado) PFSH Past Medical History Hypertension GERD Depression Sleep apnea on CPAP Peroneal neuropathy Anemia Colon polyp Past Surgical History colonoscopy in 2015 (Purvi Jurado) Coded Allergies: No Known Allergies (Unverified , 10/22/16) Medications Reported Meds & Active Scripts Active Reported E 1000 (Vitamin E) 1,000 Unit Cap 1 Cap PO DAILY Vitamin B12 (Cyanocobalamin) 500 Mcg Tab 1,000 Mcg PO DAILY Calcium 500 +D (Calcium Carbonate-Cholecalciferol) 500-400 Mg-Unit Tab 1 Tab PO DAILY Vitamin C (Ascorbic Acid) 500 Mg Cap 500 Mg PO DAILY Cymbalta DR (Duloxetine HCl) 20 Mg Capdr 20 Mg PO DAILY UNKNOWN DOSE [place] (Hydrocodone-Acetaminophen) 10-325 Mg Tab 1 Tab PO Q6H PRN Bisoprolol (Bisoprolol Fumarate) 5 Mg Tab 5 Mg PO DAILY Valsartan-Hydrochlorothiazide 80-12.5 Mg Tab 1 Tab PO DAILY PER PT DOSE 80 MG/ 12 MG Ferrous Sulfate 325 Mg Tab 325 Mg PO DAILY Venlafaxine ER 24 HR (Venlafaxine HCl) 75 Mg Cap 75 Mg PO DAILY Omeprazole 40 Mg Cap 40 Mg PO DAILY Gabapentin 600 Mg Tab 900 Mg PO DAILY Family History Other had an IA at age 52, and at age 61 of cancer Mother had hypertension, at age 77 of complications from bowel obstruction Social History Denies any tobacco or drug use Rarely drinks wine , lives in [place] (Purvi Jurado) Review of Systems Gastrointestinal: COMPLAINS OF: Abdominal pain, Nausea, Difficulty Swallowing ( has sore throat, possible thrush), Heartburn, DENIES: Black stools, Bloody stools, Constipation, Vomiting, Odynophagia, Swelling of Abdomen, Hematemesis ( Purvi Jurado) GI Exam Vitals I&O Vital Signs Date Time Temp Pulse Resp B/P Pulse Ox O2 Delivery O2 Flow Rate FiO2 10/23/16 09:04 98 Nasal Cannula 2.00 10/23/16 07:56 97.6 80 18 116/65 97 10/23/16 03:36 97.4 74 20 113/65 98 10/23/16 00:17 90 10/22/16 23:27 98.0 84 20 131/78 93 10/22/16 21:46 98 Nasal Cannula 2.00 10/22/16 20:00 81 10/22/16 19:43 12 10/22/16 19:20 97.6 84 20 106/57 98 10/22/16 16:57 98.3 85 16 114/66 97 10/22/16 15:56 87 19 119/69 99 Nasal Cannula 2 10/22/16 15:33 99 Nasal Cannula 3.00 10/22/16 13:45 88 20 127/68 97 Nasal Cannula 2 10/22/16 12:45 90 19 125/66 96 Nasal Cannula 2 10/22/16 12:04 66 19 94/57 96 Nasal Cannula 2 10/22/16 11:59 68 20 79/46 96 Nasal Cannula 2 10/22/16 11:40 63 20 143/67 97 Nasal Cannula 2 10/22/16 11:36 20 96 Nasal Cannula 2 10/22/16 11:35 97 Nasal Cannula 2 10/22/16 11:35 97 Nasal Cannula 2 10/22/16 11:23 98.9 66 18 193/114 96 I/O 10/22/16 10/22/16 10/22/16 10/23/16 10/23/16 10/23/16 07:00 15:00 23:00 07:00 15:00 23:00 Intake Total 744 ml Balance 744 ml Intake Oral 240 ml IV Total 504 ml # Voids 3 Imaging Last 48 hours Impressions Chest X-Ray 10/22/16 1129 Signed Impressions: Service Date/Time: Saturday, October 22, 2016 11:43 - CONCLUSION: No acute intrathoracic disease. Shade Gore MD Aorta CTA 10/22/16 1129 Signed Impressions: Service Date/Time: Saturday, October 22, 2016 12:38 - CONCLUSION: 1. Aorta is normal in caliber without dissection. 2. Left lower lobe infiltrate. 3. 5 mm right lower lobe pulmonary nodule. Current guidelines suggest a repeat CT of the thorax in 6-12 months. Jim Tomas Jr., MD Laboratory Test 10/22/16 10/22/16 10/23/16 11:37 20:14 02:52 White Blood Count 8.4 TH/MM3 7.4 TH/MM3 Red Blood Count 4.69 MIL/MM3 3.98 MIL/MM3 Hemoglobin 14.1 GM/DL 12.1 GM/DL Hematocrit 41.2 % 35.1 % Mean Corpuscular Volume 87.9 FL 88.3 FL Mean Corpuscular Hemoglobin 30.1 PG 30.4 PG Mean Corpuscular Hemoglobin 34.3 % 34.4 % Concent Red Cell Distribution Width 13.7 % 13.5 % Platelet Count 245 TH/MM3 208 TH/MM3 Mean Platelet Volume 8.5 FL 8.6 FL Neutrophils (%) (Auto) 69.1 % 62.8 % Lymphocytes (%) (Auto) 20.5 % 27.6 % Monocytes (%) (Auto) 8.5 % 8.4 % Eosinophils (%) (Auto) 1.3 % 0.9 % Basophils (%) (Auto) 0.6 % 0.3 % Neutrophils # (Auto) 5.8 TH/MM3 4.6 TH/MM3 Lymphocytes # (Auto) 1.7 TH/MM3 2.0 TH/MM3 Monocytes # (Auto) 0.7 TH/MM3 0.6 TH/MM3 Eosinophils # (Auto) 0.1 TH/MM3 0.1 TH/MM3 Basophils # (Auto) 0.1 TH/MM3 0.0 TH/MM3 CBC Comment DIFF FINAL DIFF FINAL Differential Comment Prothrombin Time 10.8 SEC Prothromb Time International 1.0 RATIO Ratio Activated Partial 24.2 SEC Thromboplast Time D-Dimer Quantitative (PE/DVT) 3.04 MG/L FEU Sodium Level 139 MEQ/L 141 MEQ/L Potassium Level 4.0 MEQ/L 3.4 MEQ/L Chloride Level 101 MEQ/L 105 MEQ/L Carbon Dioxide Level 30.5 MEQ/L 29.7 MEQ/L Anion Gap 8 MEQ/L 6 MEQ/L Blood Urea Nitrogen 13 MG/DL 13 MG/DL Creatinine 0.67 MG/DL 0.65 MG/DL Estimat Glomerular Filtration 89 ML/MIN 92 ML/MIN Rate Random Glucose 122 MG/DL 116 MG/DL Calcium Level 9.3 MG/DL 8.4 MG/DL Total Bilirubin 0.5 MG/DL Aspartate Amino Transf 19 U/L (AST/SGOT) Alanine Aminotransferase 28 U/L (ALT/SGPT) Alkaline Phosphatase 74 U/L Total Creatine Kinase 138 U/L 122 U/L 115 U/L Creatine Kinase MB 1.6 NG/ML Troponin I LESS THAN 0.02 LESS THAN 0.02 LESS THAN 0.02 NG/ML NG/ML NG/ML B-Type Natriuretic Peptide 20 PG/ML Total Protein 7.5 GM/DL Albumin 4.0 GM/DL Date/Time Procedure Status Source Growth 10/22/16 13:50 Aerobic Blood Culture Received Blood Peripheral Pending 10/22/16 13:50 Anaerobic Blood Culture Received Blood Peripheral Pending Physical Examination HEENT: Pupils round and reactive to light; normocephalic; atraumatic; no jaundice. Throat is clear. NECK: Neck is supple, no JVD, no lymphadenopathy. CHEST: Chest is clear to auscultation and percussion. CARDIAC: Regular rate and rhythm with no murmur gallop or rubs. ABDOMEN: Soft, nondistended, epigastric tenderness; bowel sounds are present in all four quadrants. EXTREMITIES: No clubbing, cyanosis, or edema. SKIN: Normal; no rash; no jaundice. RIPRAP PLACER: No focal deficits; alert and oriented times three. (Purvi Jurado) Assessment and Plan Assessment: (1) Epigastric pain Plan: has epigastric tenderness, pain radiates into upper back and up into mid upper chest/esophageal area (2) GERD (gastroesophageal reflux disease) Plan: On Omeprazole at home Having C/O worsening reflux/heartburn Upper mid chest discomfort (3) Chronic anemia Plan: Stable H&H on oral iron (4) Nausea Plan: Mild no vomiting (5) DAVIS (obstructive sleep apnea) Plan: Should continue CPAP per PCP Plan This is a 66 year old female admitted with C/O chest pain, troponins were negative, has C/O pressure in esophageal area and nausea, heartburn and epigastric pain, feels pressure in esophageal area. Had mild nausea no vomiting. Has chronic anemia which is stable Has known Hx of GERD on PPI, has never had an EGD. She will need an evaluation of epigastric pain and we will plan on an EGD for evaluation. She does C/O sore throat, possible oral candidiasis and is on Magic mouthwash. Plan -NPO after midnight -Continue PPI and Carafate -Follow H&H -Continue Magic mouthwash -Plan for EGD in am -Supportive care Thank you for the consult Patient was seen and examined by Dr. Lester and myself, this consultation is written on his behalf. (Purvi Jurado) Physician Comments Seen and examined, severe epigastric pain, Troponin negative, CT no dissection and normal LFT's, will proceed with EGD in AM. (Bernice Lester MD) Problem Qualifiers (1) GERD (gastroesophageal reflux disease): Qualified Code: K21.9 - Gastroesophageal reflux disease, esophagitis presence not specified Purvi Jurado Oct 23, 2016 10:59 Bernice Lester MD Oct 23, 2016 11:45
[2016-10-23] MEDS: NYSTAT/DIPHENHY/LIDO MOUTHWASH (Adult) 120ML SWISH-SWAL SCH ×3 (11:45→20:39)
[2016-10-23] MEDS: DEXT 5%-NACL 0.45% 1000 ML INJ 1,000 ML IV SCH (11:46)
--- NOTE | 2016-10-23 13:33 | EKG ---
Date Performed: 10/22/2016 Time Performed: 11:29:05 PTAGE: 66 years EKG: Sinus rhythm NORMAL ECG NO PREVIOUS TRACING DOCTOR: Karlie Mcleod Interpretating Date/Time 10/23/2016 13:31:31
--- NOTE | 2016-10-23 13:47 | EKG ---
Date Performed: 10/22/2016 Time Performed: 23:24:23 PTAGE: 66 years EKG: Sinus rhythm LOW QRS VOLTAGE IN PRECORDIAL LEADS BORDERLINE ECG Since PREVIOUS TRACING , no significant change noted PREVIOUS TRACIN10/22/2016 17.35 DOCTOR: Karlie Mcleod Interpretating Date/Time 10/23/2016 13:46:12
--- NOTE | 2016-10-23 13:47 | EKG ---
Date Performed: 10/22/2016 Time Performed: 17:35:41 PTAGE: 66 years EKG: Sinus rhythm LOW QRS VOLTAGE IN PRECORDIAL LEADS BORDERLINE ECG Since PREVIOUS TRACING , no significant change noted PREVIOUS TRACIN10/22/2016 11.29 DOCTOR: Karlie Mcleod Interpretating Date/Time 10/23/2016 13:45:29
[2016-10-23] MEDS: cefTRIAXone INJ 1,000 MG in SODIUM CHLORIDE 0.9% INJ 100 ML IV SCH (14:17)
[2016-10-24] VITALS (10 sets, daily range): BP systolic 101–129; BP diastolic 58–73; PULSE 62–87; RESP 16–18; TEMP 97.4–98.8; O2SAT 94–97
[2016-10-24] MEDS: RESP: ALBUTEROL 2.5 MG/IPRATROPIUM 0.5 MG NEB (SCH) NEB ×4 (04:00→20:33)
[2016-10-24] MEDS: ACETAMINOPHEN/HYDROcodone 325 MG/10 MG TAB PO PRN ×4 (05:04→23:58)
[2016-10-24] MEDS: SUCRALFATE 1 GM/10 ML CUP PO SCH ×4 (06:33→21:56)
--- NOTE | 2016-10-24 07:49 | HHI.PR ---
Subjective Remarks Follow up for pneumonia, atypical chest pains, epigastric pains. The patient reports feeling slightly better today. She believes the carafate and Magic Mouthwash are helping as she was able to eat her dinner last night. She did have some intermittent mild epigastric pains throughout the night but much improved compared to previous days. Denies any nausea or vomiting. Denies any fevers/chills, cough or shortness of breath. She will be going for EGD today. Objective Vitals Vital Signs Date Time Temp Pulse Resp B/P Pulse Ox O2 Delivery O2 Flow Rate FiO2 10/24/16 07:27 97.4 62 18 107/64 97 10/24/16 05:06 97.5 87 18 127/73 97 10/24/16 01:04 98.8 82 16 101/60 97 10/23/16 23:05 20 10/23/16 22:22 98.5 81 16 104/65 95 10/23/16 21:41 95 Nasal Cannula 2.00 10/23/16 20:49 66 10/23/16 20:21 97.9 92 16 121/66 99 10/23/16 16:00 80 10/23/16 11:38 98.1 82 20 110/68 95 10/23/16 09:04 98 Nasal Cannula 2.00 10/23/16 08:00 80 10/23/16 07:56 97.6 80 18 116/65 97 I/O 10/23/16 10/23/16 10/23/16 10/24/16 10/24/16 10/24/16 07:00 15:00 23:00 07:00 15:00 23:00 Intake Total 744 ml 342 ml 80 ml 1119 ml Balance 744 ml 342 ml 80 ml 1119 ml Intake Oral 240 ml 80 ml 240 ml IV Total 504 ml 342 ml 879 ml # Voids 3 3 Result Diagram: 10/23/162 10/23/16251 Imaging Last Impressions Chest X-Ray 10/22/161128 Signed Impressions: Service Date/Time: Saturday, October 22, 2016 11:43 - CONCLUSION: No acute intrathoracic disease. Shade Gore MD Aorta CTA 10/22/161128 Signed Impressions: Service Date/Time: [place], October 22, 2016 12:38 - CONCLUSION: 1. Aorta is normal in caliber without dissection. 2. Left lower lobe infiltrate. 3. 5 mm right lower lobe pulmonary nodule. Current guidelines suggest a repeat CT of the thorax in 6-12 months. Jim Tomas Jr., MD Objective Remarks GENERAL: Well-nourished, well-developed female patient in NAD. SKIN: Warm and dry. No rash. HEAD: Normocephalic. Atraumatic. NECK: Supple. Trachea midline. CARDIOVASCULAR: Regular rate and rhythm. S1, S2 noted. No murmur appreciated. RESPIRATORY: No accessory muscle use. Lungs clear to auscultation. Breath sounds equal bilaterally. GASTROINTESTINAL: Abdomen soft, nondistended, mild epigastric TTP. Normoactive bowel sounds x4. MUSCULOSKELETAL: No obvious deformities. Extremities without clubbing, cyanosis , or edema. NEUROLOGICAL: Awake and alert. No obvious cranial nerve deficits. Motor grossly within normal limits. Normal speech. PSYCHIATRIC: Appropriate mood and affect; insight and judgment normal. Medications and IVs Current Medications Medications (Trade) Dose Ordered Sig/Rommel Route Start Time Stop Time Status Last Admin (NS Flush) 2 ml UNSCH PRN FLUSH 10/22/16 14:30 10/22/16 15:54 (NS Flush) 2 ml BID FLUSH 10/22/16 21:00 10/23/16 20:38 (Narcan Inj) 0.4 mg UNSCH PRN IV 10/22/16 14:30 (Vitamin C) 500 mg DAILY PO 10/23/16 09:00 10/23/16 08:05 (Vitamin B12) 1,000 mcg DAILY PO 10/23/16 09:00 10/23/16 08:05 (Cymbalta Dr) 20 mg DAILY PO 10/23/16 09:00 10/23/16 08:05 (Ferrous Sulfate) 325 mg DAILY PO 10/23/16 09:00 10/23/16 08:05 (Neurontin) 900 mg DAILY PO 10/23/16 09:00 10/23/16 08:05 ([place] 10-325 Mg) 1 tab Q6H PRN PO 10/22/16 14:45 10/24/16 05:04 (Protonix) 40 mg DAILY PO 10/23/16 09:00 10/23/16 08:05 (Effexor Xr) 75 mg DAILY PO 10/23/16 09:00 10/23/16 08:05 (Zebeta) 5 mg DAILY PO 10/23/16 09:00 10/23/16 10:25 (Oscal-D 250-125) 500 mg DAILY PO 10/23/16 09:00 10/23/16 08:05 (Vitamin E) 800 units DAILY PO 10/23/16 09:00 10/23/16 10:25 Azithromycin 250 mg 250 mg DAILY PO 10/23/16 09:00 10/23/16 08:06 (D5W-1/2 NS 1000 ml Inj) 1,000 ml @ 42 mls/hr [id number] IV 10/22/16 15:15 10/23/16 11:46 (Diovan) 80 mg DAILY PO 10/23/16 09:00 10/23/16 08:04 (Microzide) 12.5 mg DAILY PO 10/23/16 09:00 10/23/16 08:04 Ondansetron HCl 4 mg 4 mg Q6HR PRN IV PUSH 10/22/16 15:15 10/22/16 21:38 (Rocephin Inj/NS Inj) 100 ml @ 200 mls/hr Q24H IV 10/23/16 14:00 10/23/16 14:17 (Xanax) 0.25 mg Q8H PRN PO 10/23/16 00:00 10/23/16 00:07 (Carafate Liq) 1 gm ACHS PO 10/23/16 11:00 10/24/16 06:33 (Magic Mouthwash Adult Liq) 5 ml QID SWISH-SWAL 10/23/16 13:00 10/23/16 20:39 Urinary Catheter: No Vascular Central Line Catheter: No A/P Problem List: (1) Chest pain ICD Code: R07.9 Status: Acute (2) Pneumonia ICD Code: J18.9 Status: Acute (3) Lung nodule ICD Code: R91.1 Status: Acute Assessment and Plan 66-year-old female with past medical history of HTN, GERD, neuropathy, DAVIS, depression who presented with chest pain Community Acquired Pneumonia: Left lower lobe infiltrate seen on thoracic aorta CTA. Afebrile, no leukocytosis. Continue IV Rocephin and po azithro. Scheduled nebs. Acapella and incentive spirometry. Oxygen as needed. IVF for decreased oral intake. Chest pain, atypical: Suspect GI related vs secondary to pneumonia. Doubt ACS, ACS ruled out with negative serial cardiac enzymes and EKG with no acute ST changes. Aorta CTA negative for dissection. Severe Heartburn/Reflux/Epigastric Pain/Dysphagia/Odynophagia: suspect gastritis vs esophagitis. Continue Protonix. Started on carafate tidac and Magic Mouth wash qid. Consult gastroenterology, plan for EGD today. Lung nodule: Incidentally seen on chest CT. Follow-up CT chest in 612 months. Patient informed of findings. Sleep apnea: Resume home CPAP if available, otherwise O2 at night. Other chronic medical conditions include HTN, depression, neuropathy, RAY, GERD : Stable at this time and will continue home medications as indicated. DVT Prophylaxis: SCDs Attending Statement The exam, history, and the medical decision-making described in the above note were completed with the assistance of the mid-level provider. I reviewed and agree with the findings presented. I attest that I had a [id number] encounter with the patient on the same day, and personally performed and documented my assessment and findings in the medical record. patient seen and examined this morning. Says she is much more comfortable with the Magic mouthwash. Denies any chest pain. Appreciate GI assistance. Problem Qualifiers (1) Chest pain: Qualified Code: R07.9 - Chest pain, unspecified type (2) Pneumonia: Qualified Code: J18.1 - Pneumonia of left lower lobe due to infectious organism Sissy Delarosa PA-C Oct 24, 2016 07:49 Cesar Marcelo MD Oct 24, 2016 22:55
[2016-10-24] MEDS: SODIUM CHLORIDE 0.9% FLUSH 5 ML FLUSH FLUSH SCH ×2 (09:00→21:00)
[2016-10-24] MEDS: BISOPROLOL FUMARATE 5 MG TAB PO SCH (09:18)
[2016-10-24] MEDS: ASCORBIC ACID 500 MG TAB PO SCH (09:18)
[2016-10-24] MEDS: HYDROCHLOROTHIAZIDE 12.5 MG CAP PO SCH (09:18)
[2016-10-24] MEDS: CYANOCOBALAMIN 1,000 MCG TAB PO SCH (09:18)
[2016-10-24] MEDS: VITAMIN E 400 UNIT CAP PO SCH (09:18)
[2016-10-24] MEDS: PANTOPRAZOLE SOD 40 MG DELAYED RELEASE TAB PO SCH (09:19)
[2016-10-24] MEDS: DULoxetine HCl DR 20 MG CAP PO SCH (09:19)
[2016-10-24] MEDS: AZITHROMYCIN 250 MG TAB PO SCH (09:19)
[2016-10-24] MEDS: VALSARTAN 80 MG TAB PO SCH (09:19)
[2016-10-24] MEDS: FERROUS SULFATE 325 MG (65 MG ELEMENTAL IRON) TAB PO SCH (09:19)
[2016-10-24] MEDS: VENLAFAXINE HCL XR 75 MG CAP PO SCH (09:19)
[2016-10-24] MEDS: CALCIUM/VITAMIN D 250 MG/125 U TAB PO SCH (09:19)
[2016-10-24] MEDS: GABAPENTIN 300 MG CAP PO SCH (09:19)
[2016-10-24] MEDS: NYSTAT/DIPHENHY/LIDO MOUTHWASH (Adult) 120ML SWISH-SWAL SCH ×4 (09:20→21:56)
[2016-10-24] MEDS: cefTRIAXone INJ 1,000 MG in SODIUM CHLORIDE 0.9% INJ 100 ML IV SCH (11:48)
[2016-10-24] MEDS ORDERED: PROPOFOL 200 MG/20 ML AMP IV ONE (14:38)
[2016-10-24] MEDS: DEXT 5%-NACL 0.45% 1000 ML INJ 1,000 ML IV SCH (14:53)
[2016-10-25] VITALS (9 sets, daily range): BP systolic 92–152; BP diastolic 58–82; PULSE 67–112; RESP 16–18; TEMP 97.1–98; O2SAT 94–98
[2016-10-25] MEDS: RESP: ALBUTEROL 2.5 MG/IPRATROPIUM 0.5 MG NEB (SCH) NEB ×4 (03:05→20:31)
[2016-10-25] MEDS: SUCRALFATE 1 GM/10 ML CUP PO SCH ×4 (06:12→21:16)
[2016-10-25] MEDS: ACETAMINOPHEN/HYDROcodone 325 MG/10 MG TAB PO PRN (06:13)
[2016-10-25] MEDS: SODIUM CHLORIDE 0.9% FLUSH 5 ML FLUSH FLUSH SCH ×2 (09:00→21:00)
[2016-10-25] MEDS: CALCIUM/VITAMIN D 250 MG/125 U TAB PO SCH (09:26)
[2016-10-25] MEDS: VENLAFAXINE HCL XR 75 MG CAP PO SCH (09:26)
[2016-10-25] MEDS: VITAMIN E 400 UNIT CAP PO SCH (09:26)
[2016-10-25] MEDS: DULoxetine HCl DR 20 MG CAP PO SCH (09:28)
[2016-10-25] MEDS: FERROUS SULFATE 325 MG (65 MG ELEMENTAL IRON) TAB PO SCH (09:28)
[2016-10-25] MEDS: ASCORBIC ACID 500 MG TAB PO SCH (09:29)
[2016-10-25] MEDS ORDERED: ERYTHROMYCIN ETHYLSUCCINATE 400 MG TAB PO ONE (09:30)
[2016-10-25] MEDS: BISOPROLOL FUMARATE 5 MG TAB PO SCH (09:30)
[2016-10-25] MEDS ORDERED: METOCLOPRAMIDE HCL 10 MG TAB PO ONE (09:30)
[2016-10-25] MEDS: CYANOCOBALAMIN 1,000 MCG TAB PO SCH (09:32)
[2016-10-25] MEDS: VALSARTAN 80 MG TAB PO SCH (10:15)
[2016-10-25] MEDS: HYDROCHLOROTHIAZIDE 12.5 MG CAP PO SCH (10:16)
[2016-10-25] MEDS: PANTOPRAZOLE SOD 40 MG DELAYED RELEASE TAB PO SCH (10:16)
[2016-10-25] MEDS: AMPICILLIN-SULBACTAM INJ 3 GM in SODIUM CHLORIDE 0.9% INJ 100 ML IV SCH ×3 (10:18→21:17)
[2016-10-25] MEDS: METOCLOPRAMIDE HCL 10 MG TAB PO SCH ×3 (11:00→21:16)
[2016-10-25] MEDS: FLUCONAZOLE 200 MG TAB PO SCH (11:43)
[2016-10-25] MEDS ORDERED: GABAPENTIN 300 MG CAP PO SCH (13:00)
[2016-10-25] MEDS: ACETAMINOPHEN/HYDROcodone 325 MG/5 MG TAB PO PRN ×2 (13:49→21:27)
[2016-10-25] MEDS ORDERED: GABAPENTIN 400 MG CAP PO SCH (14:05)
[2016-10-25] MEDS: GABAPENTIN 400 MG CAP PO SCH ×2 (14:51→18:32)
[2016-10-25] MEDS ORDERED: MAGNESIUM HYDROXIDE SUSP 30 ML CUP PO PRN (15:00)
[2016-10-25] MEDS: DOCUSATE SODIUM 100 MG CAP PO SCH ×2 (16:24→21:16)
[2016-10-25] MEDS: DEXT 5%-NACL 0.45% 1000 ML INJ 1,000 ML IV SCH (16:35)
[2016-10-26 00:35] VITALS: BP 106/67; PULSE 64; RESP 18; TEMP 98.8; O2SAT 97
[2016-10-26] MEDS: RESP: ALBUTEROL 2.5 MG/IPRATROPIUM 0.5 MG NEB (SCH) NEB ×2 (03:01→09:39)
[2016-10-26 04:15] VITALS: BP 120/61; PULSE 89; RESP 22; TEMP 98.8; O2SAT 98
[2016-10-26] MEDS: AMPICILLIN-SULBACTAM INJ 3 GM in SODIUM CHLORIDE 0.9% INJ 100 ML IV SCH ×2 (04:15→09:18)
[2016-10-26] MEDS: SUCRALFATE 1 GM/10 ML CUP PO SCH ×2 (06:12→12:02)
[2016-10-26] MEDS: METOCLOPRAMIDE HCL 10 MG TAB PO SCH ×2 (06:13→12:02)
[2016-10-26 07:31] VITALS: BP 117/64; PULSE 93; RESP 18; TEMP 98.2; O2SAT 97
[2016-10-26 08:00] VITALS: PULSE 97
[2016-10-26] MEDS ORDERED: POLYETHYLENE GLYCOL 17 GM PKG PO ONE (09:15)
[2016-10-26] MEDS: VALSARTAN 80 MG TAB PO SCH (09:16)
[2016-10-26] MEDS: SODIUM CHLORIDE 0.9% FLUSH 5 ML FLUSH FLUSH SCH (09:16)
[2016-10-26] MEDS: VITAMIN E 400 UNIT CAP PO SCH (09:16)
[2016-10-26] MEDS: CALCIUM/VITAMIN D 250 MG/125 U TAB PO SCH (09:16)
[2016-10-26] MEDS: HYDROCHLOROTHIAZIDE 12.5 MG CAP PO SCH (09:16)
--- NOTE | 2016-10-26 09:16 | HHI.PR ---
Subjective Remarks Follow-up for pneumonia and GERD. Patient continues to complain of some epigastric discomfort today. She has been tolerating full diet with no vomiting. She hasn't had a bowel movement in about 5 days. She denies any cough or shortness of breath. No specific chest pain. She's been ambulating in her room with no difficulties. Objective Vitals Vital Signs Date Time Temp Pulse Resp B/P Pulse Ox O2 Delivery O2 Flow Rate FiO2 10/26/16 07:31 98.2 93 18 117/64 97 10/26/16 04:15 98.8 89 22 120/61 98 10/26/16 00:35 98.8 64 18 106/67 97 10/25/16 20:33 94 10/25/16 20:01 84 10/25/16 19:09 97.8 85 18 92/58 98 10/25/16 16:07 97.6 67 16 101/63 94 10/25/16 14:51 20 10/25/16 12:04 10/25/16 11:53 98.0 76 126/68 96 I/O 10/25/16 10/25/16 10/25/16 10/26/16 10/26/16 10/26/16 07:00 15:00 23:00 07:00 15:00 23:00 Intake Total 748 ml 1200 ml 790 ml Balance 748 ml 1200 ml 790 ml Intake Oral 240 ml 800 ml 520 ml IV Total 508 ml 400 ml 270 ml # Voids 2 3 2 Result Diagram: 10/23/16 0252 10/23/16 0252 Imaging Last Impressions Chest X-Ray 10/22/169 Signed Impressions: Service Date/Time: Saturday, October 22, 2016 11:43 - CONCLUSION: No acute intrathoracic disease. Shade Gore MD Aorta CTA 10/22/16 1129 Signed Impressions: Service Date/Time: Saturday, October 22, 2016 12:38 - CONCLUSION: 1. Aorta is normal in caliber without dissection. 2. Left lower lobe infiltrate. 3. 5 mm right lower lobe pulmonary nodule. Current guidelines suggest a repeat CT of the thorax in 6-12 months. Jim Tomas Jr., MD Objective Remarks GENERAL: Well-developed well-nourished. In no acute distress. SKIN: Warm and dry. No lesions noted. HEENT: Normocephalic. Pupils equal and round. Mucous membranes pink and moist. CARDIOVASCULAR: Regular rate and rhythm. No murmur appreciated. RESPIRATORY: No accessory muscle use. Clear to auscultation. Breath sounds equal bilaterally. GASTROINTESTINAL: Abdomen soft, mild epigastric TTP, nondistended. Bowel sounds x4. MUSCULOSKELETAL: No obvious deformities. No clubbing or cyanosis. No edema. NEUROLOGICAL: Awake and alert. No focal neurological deficits. Moves upper and lower extremities spontaneously. Normal speech. PSYCHIATRIC: Appropriate mood and affect; insight and judgment normal. A/P Problem List: (1) Chest pain ICD Code: R07.9 Status: Acute (2) Pneumonia ICD Code: J18.9 Status: Acute (3) Lung nodule ICD Code: R91.1 Status: Acute (4) GERD (gastroesophageal reflux disease) ICD Code: K21.9 Status: Acute (5) Epigastric pain ICD Code: R10.13 Status: Acute Assessment and Plan 66-year-old female with past medical history of HTN, GERD, neuropathy, DAVIS, depression who presented with chest pain Community Acquired vs Aspiration Pneumonia: Left lower lobe infiltrate seen on thoracic aorta CTA. Afebrile, no leukocytosis. Received IV Rocephin and po azithro , changed to IV Unasyn 08/25. DC IV abx and change to oral Augmentin for 10 days abx total. Scheduled nebs. Acapella and incentive spirometry. Oxygen as needed. IVF for decreased oral intake. Chest pain, atypical: Suspect GI related vs secondary to pneumonia. Doubt ACS, ACS ruled out with negative serial cardiac enzymes and EKG with no acute ST changes. Aorta CTA negative for dissection. Severe Heartburn/Reflux/Epigastric Pain/Dysphagia/Odynophagia: GI consulted and performed EGD 10/24, showed Cammy esophagitis and suggestion of gastroparesis. Continue Protonix, carafate tidac. Received Magic Mouth, changed to oral fluconazole. Started on Reglan. Limit narcotics. Will need repeat EGD with GI in 2 weeks as outpatient. Lung nodule: Incidentally seen on chest CT. Follow-up CT chest in 612 months. Patient was informed of findings. Sleep apnea: Resume home CPAP if available, otherwise O2 at night. Neuropathy: Gabapentin increased. Constipation: Continue Colace. MiraLAX 1. Fleets enema. Other chronic medical conditions include HTN, depression, RAY, GERD: Stable at this time and will continue home medications as indicated. DVT Prophylaxis: SCDs Discharge Planning Likely DC later today on oral antibiotics if constipation is resolved. Discussed with Dr. Marcelo Discharge patient to home Condition on discharge: Improved Heart healthy Diet as tolerated Regular activity Rx written: Augmentin, fluconazole, Reglan, [place]-Colace, Carafate, Gabapentin Follow-up with primary care physician and gastroenterology Attending Statement The exam, history, and the medical decision-making described in the above note were completed with the assistance of the mid-level provider. I reviewed and agree with the findings presented. I attest that I had a [id number] encounter with the patient on the same day, and personally performed and documented my assessment and findings in the medical record.patient seen and examined prior discharge. Patient says she feels well, feels comfortable going home. No abdominal tenderness. Discussed with nursing. Can discharge if she has a bowel movement. Problem Qualifiers (1) Chest pain: Qualified Code: R07.9 - Chest pain, unspecified type (2) Pneumonia: Qualified Code: J18.1 - Pneumonia of left lower lobe due to infectious organism (3) GERD (gastroesophageal reflux disease): Qualified Code: K21.9 - Gastroesophageal reflux disease, esophagitis presence not specified Wisam Rondon Oct 26, 2016 09:15 Cesar Marcelo MD Oct 27, 2016 02:25
[2016-10-26] MEDS: DULoxetine HCl DR 20 MG CAP PO SCH (09:17)
[2016-10-26] MEDS: CYANOCOBALAMIN 1,000 MCG TAB PO SCH (09:17)
[2016-10-26] MEDS: BISOPROLOL FUMARATE 5 MG TAB PO SCH (09:17)
[2016-10-26] MEDS: VENLAFAXINE HCL XR 75 MG CAP PO SCH (09:17)
[2016-10-26] MEDS: FLUCONAZOLE 200 MG TAB PO SCH (09:17)
[2016-10-26] MEDS: DOCUSATE SODIUM 100 MG CAP PO SCH (09:17)
[2016-10-26] MEDS: FERROUS SULFATE 325 MG (65 MG ELEMENTAL IRON) TAB PO SCH (09:17)
[2016-10-26] MEDS: GABAPENTIN 400 MG CAP PO SCH (09:17)
[2016-10-26] MEDS: ASCORBIC ACID 500 MG TAB PO SCH (09:18)
[2016-10-26] MEDS: PANTOPRAZOLE SOD 40 MG DELAYED RELEASE TAB PO SCH (09:18)
[2016-10-26] MEDS: ACETAMINOPHEN/HYDROcodone 325 MG/5 MG TAB PO PRN (09:18)
[2016-10-26] MEDS ORDERED: SOD PHOSPHATE/SOD BIPHOSPHATE (ADULT) ENEMA 133ML PR ONE (10:30)
[2016-10-26 10:43] VITALS: O2SAT 94
[2016-10-26] MEDS ORDERED: FLUC100T2 PO (10:58)
[2016-10-26] MEDS ORDERED: METO10TA PO (10:58)
[2016-10-26] MEDS ORDERED: NEUR400C PO (10:58)
[2016-10-26] MEDS ORDERED: AMOX875T2 PO (10:58)
[2016-10-26] MEDS ORDERED: PERI8.6T PO (10:59)
[2016-10-26] MEDS ORDERED: AMOXICILLIN/CLAVULANATE K 875 MG TAB PO SCH (11:00)
[2016-10-26 11:15] VITALS: BP 102/64; PULSE 91; RESP 18; TEMP 98; O2SAT 95
--- NOTE | 2016-10-27 02:06 | HHI.PR ---
Subjective Remarks date of service 10/25/16. Patient seen and examined the morning of 10/25/16. Patient reports pain better with Magic mouthwash. Objective Vital Signs Date Time Temp Pulse Resp B/P Pulse Ox O2 Delivery O2 Flow Rate FiO2 10/26/16 11:15 98.0 91 18 102/64 95 10/26/16 10:43 94 21 10/26/16 08:00 97 10/26/16 07:31 98.2 93 18 117/64 97 10/26/16 04:15 98.8 89 22 120/61 98 Result Diagram: 10/23/1625110/23/16251 Objective Remarks GENERAL: patient lying in bed. Appears comfortable. Alert and oriented x3. SKIN: Warm and dry. HEAD: Normocephalic. EYES: No scleral icterus. No injection or drainage. NECK: Supple, trachea midline. No JVD. CARDIOVASCULAR: Regular rate and rhythm without murmurs, gallops, or rubs. RESPIRATORY: Breath sounds equal bilaterally. No accessory muscle use. GASTROINTESTINAL: Abdomen soft, non-tender, nondistended. MUSCULOSKELETAL: No cyanosis, or edema. BACK: Nontender without obvious deformity. No CVA tenderness. A/P Assessment and Plan 66-year-old female with past medical history of HTN, GERD, neuropathy, DAVIS, depression who presented with chest pain Community Acquired Pneumonia: Left lower lobe infiltrate seen on thoracic aorta CTA. Afebrile, no leukocytosis. Continue IV Rocephin and po azithro. Scheduled nebs. Acapella and incentive spirometry. Oxygen as needed. IVF for decreased oral intake. =improving. Continue antibiotics Chest pain, atypical: Suspect GI related vs secondary to pneumonia. Doubt ACS, ACS ruled out with negative serial cardiac enzymes and EKG with no acute ST changes. Aorta CTA negative for dissection =appreciate GI assistance. Patient for EGD.. //Severe Heartburn/Reflux/Epigastric Pain/Dysphagia/Odynophagia: suspect gastritis vs esophagitis. Continue Protonix. Started on carafate tidac and Magic Mouth wash qid. Consult gastroenterology, =plan for EGD today. Lung nodule: Incidentally seen on chest CT. Follow-up CT chest in 612 months. Patient informed of findings. Sleep apnea: Resume home CPAP if available, otherwise O2 at night. Other chronic medical conditions include HTN, depression, neuropathy, RAY, GERD : Stable at this time and will continue home medications as indicated. DVT Prophylaxis: Cesar Pretty MD Oct 27, 2016 02:06
--- NOTE | 2016-10-27 02:09 | HHI.DS ---
Discharge Summary Admission Date Oct 22, 2016 at 14:26 Discharge Date: Oct 26, 2016 Admitting Diagnosis chest pain, pneumonia (1) Chest pain ICD Code: R07.9 (2) Pneumonia ICD Code: J18.9 (3) Lung nodule ICD Code: R91.1 (4) GERD (gastroesophageal reflux disease) ICD Code: K21.9 (5) Epigastric pain ICD Code: R10.13 Procedures EGD. Biopsies pending at time of discharge. Brief History - From Admission 66-year-old female with past medical history of HTN, GERD, neuropathy, DAVIS, depression who presented with chest pain. The patient states for the past few days she's been having chest pain that radiates to her back. She locates the pain midsternally. She describes the pain as gnawing, constant, sharp. The pain is worse when she coughs and takes a deep breath. She's been having occasional cough for the past few days, dry. She does note shortness of breath for the past few days. She states the pain in her chest is worse whenever she eats, so she has not been eating much. She denies any fevers or chills. She has had a sore throat. She states after receiving antibiotics today she became a little nauseated, denies any vomiting. She denies any prior history of heart disease. No tobacco use history. CBC/BMP: 10/23/16 0252 10/23/16 0252 Imaging Last Impressions Chest X-Ray 10/22/161128 Signed Impressions: Service Date/Time: Saturday, October 22, 2016 11:43 - CONCLUSION: No acute intrathoracic disease. Shade Gore MD Aorta CTA 10/22/161128 Signed Impressions: Service Date/Time: Saturday, October 22, 2016 12:38 - CONCLUSION: 1. Aorta is normal in caliber without dissection. 2. Left lower lobe infiltrate. 3. 5 mm right lower lobe pulmonary nodule. Current guidelines suggest a repeat CT of the thorax in 6-12 months. Jim Tomas Jr., MD PE at Discharge GENERAL: Well-developed well-nourished. In no acute distress. SKIN: Warm and dry. No lesions noted. HEENT: Normocephalic. Pupils equal and round. Mucous membranes pink and moist. CARDIOVASCULAR: Regular rate and rhythm. No murmur appreciated. RESPIRATORY: No accessory muscle use. Clear to auscultation. Breath sounds equal bilaterally. GASTROINTESTINAL: Abdomen soft, mild epigastric TTP, nondistended. Bowel sounds x4. MUSCULOSKELETAL: No obvious deformities. No clubbing or cyanosis. No edema. NEUROLOGICAL: Awake and alert. No focal neurological deficits. Moves upper and lower extremities spontaneously. Normal speech. PSYCHIATRIC: Appropriate mood and affect; insight and judgment normal. Hospital Course Chest pain improved with Magic mouthwash. Cardiac enzymes negative. CTA negative as above. She was treated for pneumonia with broad-spectrum antibiotics. Gastroenterology was consult to. EGD was performed, consistent with Cammy esophagitis. Biopsies pending at time of discharge. Patient was started on fluconazole. Will need to follow-up with gastroenterology as outpatient. For problem-based summary from most recent progress note, please see below. 66-year-old female with past medical history of HTN, GERD, neuropathy, DAVIS, depression who presented with chest pain Community Acquired vs Aspiration Pneumonia: Left lower lobe infiltrate seen on thoracic aorta CTA. Afebrile, no leukocytosis. Received IV Rocephin and po azithro , changed to IV Unasyn 08/25. DC IV abx and change to oral Augmentin for 10 days abx total. Scheduled nebs. Acapella and incentive spirometry. Oxygen as needed. IVF for decreased oral intake. Chest pain, atypical: Suspect GI related vs secondary to pneumonia. Doubt ACS, ACS ruled out with negative serial cardiac enzymes and EKG with no acute ST changes. Aorta CTA negative for dissection. Severe Heartburn/Reflux/Epigastric Pain/Dysphagia/Odynophagia: GI consulted and performed EGD 10/24, showed Cammy esophagitis and suggestion of gastroparesis. Continue Protonix, carafate tidac. Received Magic Mouth, changed to oral fluconazole. Started on Reglan. Limit narcotics. Will need repeat EGD with GI in 2 weeks as outpatient. Lung nodule: Incidentally seen on chest CT. Follow-up CT chest in 612 months. Patient was informed of findings. Sleep apnea: Resume home CPAP if available, otherwise O2 at night. Neuropathy: Gabapentin increased. Constipation: Continue Colace. MiraLAX 1. Fleets enema. Other chronic medical conditions include HTN, depression, RAY, GERD: Stable at this time and will continue home medications as indicated. DVT Prophylaxis: SCDs Pt Condition on Discharge: Stable Discharge Disposition: Discharge Home Discharge Time: <= 30 minutes Discharge Instructions DIET: Follow Instructions for: Heart Healthy Diet Additional Diet Instructions: Eat small frequent meals for gastroparesis Activities you can perform: Regular-No Restrictions Follow up Referrals: Gastroenterology - 2 Weeks @ [facility] PCP Follow-up - 1 Week New Medications: Fluconazole (Fluconazole) 100 Mg Tab 100 MG PO DAILY Infection #7 Ref 0 TAB Sennosides-Docusate Sodium ([place]-Colace) 8.6-50 Mg Tab 1 TAB PO BID Constipation #60 Ref 0 TAB Amoxicillin-Clavulanate (Amoxicillin-Clavulanate) 875-125 mg Tab 875 MG PO Q12HR Infection #14 TAB Gabapentin (Neurontin) 400 Mg Cap 400 MG PO TID neuropathy #90 CAP Metoclopramide (Metoclopramide) 10 Mg Tab 10 MG PO ACHS gastroparesis #90 TAB Continued Medications: Ascorbic Acid (Vitamin C) 500 Mg Cap 500 MG PO DAILY Nutritional Supplement Ref 0 CAP Bisoprolol (Bisoprolol) 5 Mg Tab 5 MG PO DAILY Blood Pressure Management #30 Ref 0 TAB Calcium Carbonate-Cholecalciferol (Calcium 500 +D) 500-400 Mg-Unit Tab 1 TAB PO DAILY Calcium Supplement Ref 0 TAB Cyanocobalamin (Vitamin B12) 500 Mcg Tab 1000 MCG PO DAILY #[address] (Cymbalta DR) 20 Mg Capdr 20 MG PO DAILY UNKNOWN DOSE #30 Ref 0 CAP Ferrous Sulfate (Ferrous Sulfate) 325 Mg Tab 325 MG PO DAILY Nutritional Supplement #30 Ref 0 TAB Gabapentin (Gabapentin) 600 Mg Tab 900 MG PO DAILY #60 Ref 0 TAB Hydrocodone-Acetaminophen ([place]) 10-325 Mg Tab 1 TAB PO Q6H PRN PAIN Ref 0 TAB Omeprazole (Omeprazole) 40 Mg Cap 40 MG PO DAILY #30 Ref 0 CAP Valsartan-Hydrochlorothiazide (Valsartan-Hydrochlorothiazide) 80-12.5 Mg Tab 1 TAB PO DAILY PER PT DOSE 80 MG/ 12 MG Blood Pressure Management #30 Ref 0 TAB Venlafaxine ER 24 HR (Venlafaxine ER 24 HR) 75 Mg Cap 75 MG PO DAILY #30 Ref 0 CAP Vitamin E (E 1000) 1,000 Unit Cap 1 CAP PO DAILY Cesar Marcelo MD Oct 27, 2016 02:09
== END 2016-10-26 12:21 | disposition home or self-care (01) ==
LOC: NEPA 11:21 → NEDA 14:26 → NEPGCP 16:56
PROVIDERS: ADMIT Internal Medicine; ATTEND Internal Medicine
DX: R07.9 Chest pain, unspecified (principal); J18.9 Pneumonia, unspecified organism; R91.1 Solitary pulmonary nodule; I10 Essential (primary) hypertension; E78.5 Hyperlipidemia, unspecified; R06.02 Shortness of breath; Z79.899 Other long term (current) drug therapy; R05 Cough; K21.0 Gastro-esophageal reflux disease with esophagitis; G62.9 Polyneuropathy, unspecified; G47.33 Obstructive sleep apnea (adult) (pediatric); F32.9 Major depressive disorder, single episode, unspecified; R11.0 Nausea; B37.0 Candidal stomatitis; D64.9 Anemia, unspecified; K31.7 Polyp of stomach and duodenum; Z23 Encounter for immunization
CPT/HCPCS: 00740; 43239; 71010; 71275; 74174; 80048; 80053; 82550; 82552; 83880; 84484; 85025; 85379; 85610; 85730; 87040; 88305; 88312; 90686; 93005; 94150; 94640; 94664; 94667; 94668; 96361; 96365; 96375; 99285; G0378; J0295; J0456; J0696; J2270; J2405; J7030; J7050; Q9967; Q2038